=== PATIENT | female | born 1955 | race Caucasian/White ===

== ENCOUNTER → 2024-06-04 | Outpatient (CLI) | payer MEDICARE, OTHER ==
--- NOTE | 2024-06-04 11:14 | CT ---
EXAMINATION TYPE: CT ankle RT wo con DATE OF EXAM: 06/04/2024 COMPARISON: None. HISTORY: RIGHT ANKLE PAIN. Primary osteoarthritis. CT DLP: 277.6 mGycm Automated exposure control for dose reduction was used. CONTRAST: CT right ankle without contrast.. FINDINGS: There is asymmetric severe medial narrowing of the medial ankle mortise with subchondral cystic rivera e involving the adjacent medial aspect of the distal tibia and medial talar dome. There is subchondral cystic change and erosive changes along the distal fibula. There is severe degen erative change at the talocalcaneal joint with marked narrowing and subchondral cystic change. An os trigonum is present. There is small to moderate size inferior calcaneal spur. There is moderate to severe narrowing with s ubchondral cystic change in the midfoot at the level of the Lisfranc joints and the cuboid bone artic ulations. There is moderate narrowing at the talonavicular joint with bony projection from the anteri or superior aspect of the talus also seen. There is partial visualization of surgical change in the f irst metatarsal extending into the proximal phalanx. There is mild to moderate diffuse subcutaneous edema. There is additional 1.8 cm soft tissue lesion a long the plantar surface of the hindfoot axial image 99 of uncertain etiology. IMPRESSION: As above. Advanced degenerative changes are present. Deformity of ankle mortise. Underlyi ng chronic ligamentous injury is suspected. [facility], , 06/04/2024 11:12 AM
== END | disposition home or self-care (01) ==
LOC: RADCTMAIN 09:35
PROVIDERS: ATTEND Podiatrist
DX: M19.071 Primary osteoarthritis, right ankle and foot (principal)

== ENCOUNTER → 2024-07-12 | Outpatient (CLI) | payer MEDICARE, OTHER ==
--- NOTE | 2024-07-12 10:55 | MM ---
Reason for Exam: Screening (asymptomatic). Patient History: Menarche at age 11. Patient has no children. Postmenopausal. MG stereo VAD BX LT - 2 on the Left side. MG stereo VAD BX RT on the Right side. Risk Values: Rowan 5 year model risk: 3.1%. NCI Lifetime model risk: 10.4%. Prior Study Comparison: No prior studies available for comparison. Tissue Density: There are scattered areas of fibroglandular density. Findings: Analyzed By CAD. Grouped microcalcifications outer aspect left breast anterior to middle depth for which further magnification views are recommended. Asymmetric density left MLO view for which further evaluation is also recommended. A microclip in either breast from previous biopsies. Overall Assessment: Incomplete: need additional imaging evaluation, BI-RAD 0 Management: Special View Mammogram of the left breast. Both spot compression and magnification views. [facility] will attempt to contact patient to return for supplemental views and ultrasound if indicated. [facility], , 07/12/2024 10:52 AM. Electronically signed and approved by: Linda Baldwin M.D. Radiologist
== END | disposition home or self-care (01) ==
LOC: RADMAMWWP 09:34
PROVIDERS: ATTEND Family Medicine
DX: Z12.31 Encounter for screening mammogram for malignant neoplasm of breast (principal); R92.323 Mammographic fibroglandular density, bilateral breasts; Z78.0 Asymptomatic menopausal state
CPT/HCPCS: 77063; 77067

== ENCOUNTER → 2024-07-14 | Outpatient (CLI) | payer MEDICARE, OTHER ==
--- NOTE | 2024-07-14 09:14 | MM ---
Reason for Exam: Additional evaluation requested from abnormal screening. Last screening mammogram was performed less than 1 month ago. Patient History: Menarche at age 11. Patient has no children. Postmenopausal. MG stereo VAD BX LT - 2 on the Left side. MG stereo VAD BX RT on the Right side. Risk Values: Rowan 5 year model risk: 3.1%. NCI Lifetime model risk: 10.4%. Prior Study Comparison: 07/12/2024 Bilateral MG 3D screening mammo w/cad, [facility]. Tissue Density: Left: There are scattered areas of fibroglandular density. Findings: Analyzed By CAD. On magnification views, we identify 2 similar groups of microcalcifications, one being the originally questioned group at approximately 3:00 anterior to middle depth and a second area the lower inner quadrant at approximately 8:00. Both of these groups appears similar with round/punctate calcifications and six-month follow-up can be performed. The area of focal asymmetry in the upper outer subareolar region becomes less pronounced on additional views favoring superposition shadow and can also be reassessed at follow-up. Overall Assessment: Probably benign, BI-RAD 3 Management: Diagnostic Mammogram of the left breast in 6 months. For the 2 groups of round/punctate microcalcifications and for the subareolar focal asymmetry. Results were given to the patient verbally at the time of exam. Patient should continue monthly self-breast exams. A clinical breast exam by your physician is recommended on an annual basis. This exam should not preclude additional follow-up of suspicious palpable abnormalities. Note on Rowan scores and lifetime risk: 1. A Rowan score greater than 3% is considered moderate risk. If this is the case, consider specialist referral to assess eligibility for a risk reducing agent. 2. If overall lifetime risk for the development of breast cancer is 20% or higher, the patient may qualify for future screening with alternating mammogram and breast MRI. [facility], , 07/14/2024 9:11 AM. Electronically signed and approved by: Linda Baldwin M.D. Radiologist
== END | disposition home or self-care (01) ==
LOC: RADMAMWWP 08:37
PROVIDERS: ATTEND Family Medicine
DX: R92.8 Other abnormal and inconclusive findings on diagnostic imaging of breast (principal); R92.322 Mammographic fibroglandular density, left breast; Z78.0 Asymptomatic menopausal state
CPT/HCPCS: 77065; G0279; 77061

== ENCOUNTER 2024-07-30 05:36 | Inpatient (IN) | payer MEDICARE, OTHER ==
[2024-07-27 12:44] VITALS: BMI 38.0
[2024-07-30] MEDS: IV FLUID CONTINUATION 1,000 ML IV ONE (06:45)
[2024-07-30] MEDS: LACTATED RINGERS 1,000 ML IV SCH (06:55)
[2024-07-30] MEDS ORDERED: HYDROmorphone 0.5 MG/0.5 ML SYRINGE IVP PRN (07:00)
[2024-07-30] MEDS: ONDANSETRON 4 MG/2 ML VIAL IVP ONE (07:01)
[2024-07-30] MEDS: DEXAMETHASONE SOD PHOSPHATE 4 MG/ML 1 ML VIAL IV ONE (07:01)
[2024-07-30] MEDS: fentaNYL (PF) 50 MCG/ML 2 ML AMP IVP STA (07:04)
[2024-07-30] MEDS: MIDAZOLAM 2 MG/2 ML VIAL IV PRN (07:04)
[2024-07-30 07:10] LABS: Basophils # (A) 0.09 10*3/uL (0.00-0.10); Basophils % (A) 0.8 %; Eosinophils # (A) 0.52 10*3/uL (0.04-0.35); Eosinophils % (A) 4.9 %; HCT 38.2 % (37.2-46.3); HGB 12.3 g/dL (12.0-15.0); Lymphocytes % (A) 11.3 %; MCH 30.1 pg (27.0-32.0); MCHC 32.2 g/dL (32.0-37.0); MCV 93.6 fL (80.0-97.0); Mean Platelet Volume 9.4 fL (9.5-12.2); Monocytes # (A) 1.01 10*3/uL (0.20-1.00); Monocytes % (A) 9.5 %; Neutrophils # (A) 7.77 10*3/uL (1.80-7.70); Neutrophils % (A) 72.8 %; Platelet Count 404 10*3/uL (140-440); RBC 4.08 10*6/uL (4.10-5.20); RDW 15.8 % (11.5-14.5); WBC 10.66 10*3/uL (4.50-10.00)
[2024-07-30] MEDS ORDERED: PHENYLEPHRINE 10 MG/ML VIAL ONE (07:25)
[2024-07-30] MEDS ORDERED: LIDOCAINE 1% INJ 10MG/ML (20 ML MDV) ONE (07:25)
[2024-07-30] MEDS ORDERED: SUCCINYLCHOLINE CHLORIDE 200 MG/10 ML VIAL IV ONE (07:25)
[2024-07-30] MEDS ORDERED: SODIUM CHLORIDE 0.9% (PF) 10 ML VIAL ONE (07:25)
[2024-07-30] MEDS ORDERED: GLYCOPYRROLATE 0.2 MG/ML 2 ML VIAL ONE (07:25)
[2024-07-30] MEDS ORDERED: PROPOFOL 10 MG/ML 20 ML VIAL IV ONE (07:25)
[2024-07-30] MEDS ORDERED: DEXAMETHASONE SOD PHOSPHATE 4 MG/ML 1 ML VIAL ONE (07:25)
[2024-07-30] MEDS ORDERED: fentaNYL (PF) 50 MCG/ML 2 ML AMP ONE (07:25)
[2024-07-30] MEDS ORDERED: ROPIVACAINE 5 MG/ML 30 ML VIAL ONE (07:25)
[2024-07-30] MEDS ORDERED: ePHEDrine 50 MG/ML 1 ML VIAL ONE (07:25)
[2024-07-30] MEDS: ceFAZolin 1,000 MG in SODIUM CHLORIDE 0.9% 1,000 ML IRRIGATION ONE (07:30)
[2024-07-30] MEDS: ceFAZolin 2 GM in DEXTROSE 5% IN WATER 50 ML IVPB PRN (07:30)
[2024-07-30] MEDS: HEPARIN SODIUM 1,000 UN/ML (10ML VL) MISCELLANE ONE (07:50)
--- NOTE | 2024-07-30 07:50 | P.ANPRN ---
Procedure Note - Anesthesia - Nerve Block Performed Right Adductor Canal Single Time Out Performed: Yes Date of Procedure: 07/30/24 Procedure Start Time: :04 Procedure Stop Time: 07:09 Location of Patient: PreOp Indication: Acute Post-Operative Pain, Requested by Surgeon Sedation Type: Sedate with meaningful contact maintained Preparation: Sterile Prep Position: Supine Needle Types: Pajunk Needle Gauge: 21 Ultrasound used to visualize needle placement: Yes Ultrasound used to observe medication spread: Yes Injectate: 0.5% Ropivacaine (see comment for volume) (20 mL +10 mL of normal saline +4 mg dexamethasone) Blood Aspirated: No Pain Paresthesia on Injection Noted: No Resistance on Injection: Normal Image Stored and Saved: Yes Events: Uneventful and Well Tolerated
--- NOTE | 2024-07-30 07:51 | P.ANPRN ---
Procedure Note - Anesthesia - Nerve Block Performed Right Popliteal Single Time Out Performed: Yes Date of Procedure: 07/30/24 Procedure Start Time: 07:10 Procedure Stop Time: 07:15 Location of Patient: PreOp Indication: Acute Post-Operative Pain, Requested by Surgeon Sedation Type: Sedate with meaningful contact maintained Preparation: Sterile Prep Position: Left Lateral Needle Types: Pajunk Needle Gauge: 21 Ultrasound used to visualize needle placement: Yes Ultrasound used to observe medication spread: Yes Injectate: 0.5% Ropivacaine (see comment for volume) (20 mL +10 mL of normal saline +4 mg dexamethasone) Blood Aspirated: No Pain Paresthesia on Injection Noted: No Resistance on Injection: Normal Image Stored and Saved: Yes Events: Uneventful and Well Tolerated
--- NOTE | 2024-07-30 10:27 | XR ---
EXAMINATION TYPE: XR ankle limited RT, FL guidance operating room Intraoperative/procedural fluorosco pic services were provided. CLINICAL INDICATION:Female, 68 years old with history of M19.071 OA RIGHT ANKLE; , [facility] FINDINGS: Postsurgical changes of the right ankle with multiple screws and fixation plate identified. Additiona l fixation hardware of the first digit. There is resection of the distal fibula. Surrounding soft tis reba swelling. No radiographic evidence for complication. Total fluoroscopy time is 30.4 seconds. DAP: 0.3896 Gycm2 Please see the operative/procedural note for further details. [facility], , 07/30/2024 10:24 AM
[2024-07-30] MEDS ORDERED: LORATADINE 10 MG TAB PO PRN (12:59)
[2024-07-30] MEDS ORDERED: diphenhydrAMINE 25 MG CAP PO PRN (12:59)
--- NOTE | 2024-07-30 13:33 | P.CONS ---
History of Present Illness - Reason for Consult Consult date: 07/30/24 - History of Present Illness Patient is a 68-year-old female with past medical history of hypertension, hypothyroidism, obesityRA, BMI 38, active smoker, right ankle osteoarthritis who presented for elective right ankle arthrodesis with subtalar arthrodesis and bone marrow aspiration that was performed on 07/30/2024, patient tolerated procedure well. Sound physicians consulted for medical management. Reviewed patient's vitals, afebrile, blood pressure elevated this morning 166/73, satting well on room air, heart rate in 60s. Blood work this a.m. showed mild leukocytosis 10.6, hemoglobin normal and stable 12.3, platelet count normal. Reviewed external notes, scanned Pertinent positives and negatives as discussed in HPI, a complete review of systems was performed and all other systems are negative. Patient seen and examined at bedside. Vital signs reviewed General: nontoxic, no distress, appears at stated age, obese Derm: warm, dry Head: atraumatic, normocephalic, symmetric Eyes: EOMI, no lid lag, anicteric sclera, pupils equal round reactive to light ENT: Nose and ears atraumatic Neck: No thyromegaly, supple Mouth: no lip lesion, mucus membranes moist Cardiovascular: S1S2 reg, no murmur, no edema Lungs: clear to auscultation bilateral, no rhonchi, no rales, no wheeze, no accessory muscle use Abdominal: soft, nontender to palpation, no guarding, no appreciable organomegaly Ext: no gross muscle atrophy, muscle strength muscle strength 5 out of 5 in all 4 extremities, no contractures, postop dressing clean and dry Neuro: CN II-XII grossly intact Psych: Alert, oriented, appropriate affect Assessment/Plan: Leukocytosis -No signs of active infection, likely reactive, monitor CBC, ordered hypertension hypothyroidism obesity, BMI 38 RA Vitamin B12 deficiency Iron deficiency Depression Allergies -Continue home cholecalciferol 5000 IU daily, vitamin B12 2000 mcg daily, ferrous sulfate 325 p.o. daily, Benadryl 25 p.o. daily, loratadine 10 mg p.o. daily, levothyroxine 100 mcg p.o. daily, lisinopril 10 mg p.o. daily, memantine 5 mg p.o. daily, omeprazole 40 mg p.o. daily, venlafaxine 100 mg 3 times daily -Continue sulfasalazine 1000 twice daily Tobacco use disorder -Nicotine patch ordered per patient's request, discussed importance of smoking cessation right ankle osteoarthritis s/p elective right ankle arthrodesis with subtalar arthrodesis and bone marrow aspiration 07/30/2024 - your postop management, DVT prophylaxis, bowel regimen, pain medications CODE STATUS: Full code DVT prophylaxis: per ortho Past Medical History Past Medical History: GERD/Reflux, Hypertension, Rheumatoid Arthritis (RA), Thyroid Disorder History of Any Multi-Drug Resistant Organisms: None Reported Past Surgical History: Bariatric Surgery, Joint Replacement, Orthopedic Surgery Additional Past Surgical History / Comment(s): LT TKA, LT ELBOW REPAIR X 8 THEN REPLACEMENT, COLONOSCOPY/EGD , ORIF RT WRIST Past Anesthesia/Blood Transfusion Reactions: No Reported Reaction Smoking Status: Current every day smoker - Past Family History Mother Family Medical History: No Reported History Medications and Allergies Home Medications Medication Instructions Recorded Confirmed Type Acetaminophen [Tylenol Extra 1,000 mg PO TID PRN 07/27/24 07/30/24 History Strength] Ascorbic Acid [Vitamin C] 2,000 mg PO BID 07/27/24 07/27/24 History Cholecalciferol [Vitamin D3 (125 125 mcg PO DAILY 07/27/24 07/30/24 History Mcg = 5000 Iu)] Cyanocobalamin (Vitamin B-12) 2,000 mcg PO DAILY 07/27/24 07/30/24 History [Vitamin B-12] Ferrous Sulfate [Feosol] 325 mg PO DAILY 07/27/24 07/30/24 History Ibuprofen [Motrin Ib] 200 mg PO Q8H 07/27/24 07/27/24 History Levothyroxine Sodium 100 mcg PO DAILY 07/27/24 07/30/24 History Loratadine [Claritin] 10 mg PO DAILY PRN 07/27/24 07/30/24 History Magnesium 250 mg PO DAILY 07/27/24 07/30/24 History Memantine [Namenda] 5 mg PO HS 07/27/24 07/30/24 History Multivit with Calcium,Iron,Min 1 each PO DAILY 07/27/24 07/30/24 History [Women's Multivitamin] Omeprazole 40 mg PO DAILY 07/27/24 07/30/24 History Venlafaxine HCl [Effexor] 100 mg PO TID 07/27/24 07/30/24 History diphenhydrAMINE [Benadryl] 25 mg PO DAILY PRN 07/27/24 07/27/24 History lisinopriL [Prinivil] 10 mg PO HS 07/27/24 07/30/24 History sulfaSALAzine [Azulfidine] 1,000 mg PO BID 07/30/24 07/30/24 History Allergies Allergy/AdvReac Type Severity Reaction Status Date / Time Penicillins Allergy Rash/Hives Verified 07/30/24 06:18 Physical Exam Vitals: Vital Signs Temp Pulse Resp BP BP Pulse Ox 07/30/24 07:22 63 16 142/63 98 07/30/24 06:38 97.2 F L 63 16 173/70 166/73 97 Intake and Output 07/29/24 07/30/24 07/30/24 22:59 06:59 14:59 Intake Total 100 651 Output Total 110 Balance 100 541 Intake: IV 100 651 Output: Estimated Blood Loss 110 Results CBC & Chem 7: 07/30/24 06:50 Labs: Abnormal Lab Results - Last 24 Hours (Table) 07/30/24 Range/Units 06:50 WBC 10.66 H (4.50-10.00) 10*3/uL RBC 4.08 L (4.10-5.20) 10*6/uL MPV 9.4 L (9.5-12.2) fL Immature Gran # 0.07 H (0.00-0.04) 10*3/uL Neutrophils # 7.77 H (1.80-7.70) 10*3/uL Monocytes # 1.01 H (0.20-1.00) 10*3/uL Eosinophils # 0.52 H (0.04-0.35) 10*3/uL
--- NOTE | 2024-07-30 14:06 | P.OP ---
Date of Procedure: 07/30/24 Preoperative Diagnosis: 1. Primary osteoarthritis right foot and ankle 2. Acquired deformity right foot and ankle Postoperative Diagnosis: 1. Same 2. Same Procedure(s) Performed: Tibial talocalcaneal arthrodesis right Bone marrow aspiration right tibia Implants: Arthritis lateral tibial talocalcaneal arthrodesis plate with associated screws 15 cc of Arthocell Anesthesia: LASHON Surgeon: Giovanny Gonzales Estimated Blood Loss (ml): 110 Pathology: none sent Condition: stable Disposition: PACU Description of Procedure: Prior to the patient be brought to the op room, anesthesia administered a nerve block on the operative extremity. The patient brought the operating placed on table supine position. Time was taken to confirm correct patient identifiers, correct laterality of surgery, and car procedure. Once all staff in the room in agreement timeout, the patient was induced placed under anesthesia. A thigh tourniquet was placed on the operative hip and a bump beneath the operative hip to internally rotate the leg. The leg was prepped and draped usual manner. Attention directed over the anterior lateral tibia just superior to the ankle joint. A Jamshidi needle was inserted into the medullary canal of the tibia. Approximately 55 mL of bone marrow aspirate was removed and was passed off the field to be spun down to bone marrow aspirate concentrate. The leg was exsanguinated, the knee flexed, and the tourniquet inflated to 250 mmHg. Attention directed to the lateral ankle where a midline incision was made down the fibula and extending over the calcaneus. The incision was deepened down to the subcutaneous tissue careful to identify, void, and retracting neurovascular structures and cauterize any bleeding vessels. Blunt dissection was carried down to the lateral malleolus. The soft tissue surrounding the lateral malleolus including the syndesmosis was incised. The peroneal tendons were protected and the soft tissue incised at the posterior aspect the lateral malleolus. A sagittal saw was used to resect the lateral malleolus. The cut was beveled to avoid any edges on the lateral surface. It was also done several centimeters proximal to the ankle joint from the placement of the laterally based plate. The fibula was dissected from its soft tissue and removed from the surgical field. Soft tissue was released around the ankle and subtalar joints to allow access. A distractor was placed in the calcaneus and the tibia to allow access to both joints. A joint prep bur was then utilized to remove the articular cartilage and subchondral bone of the conjoint surfaces of the tibia and talus as well as the talus and calcaneus. Once adequate joint preparation was achieved, all surfaces were aggressively fenestrated to promote bleeding into the area. At this point the bone marrow aspirate had completed this pr ocess and that was mixed with morselized bone allograft. That was placed between the arthrodesis segments. With the ankle and subtalar joint held in desired alignment, a guidewire was placed on the plantar surface of the calcaneus and advanced across the arthrodesis site and into the tibia to maintain the alignment. Fluoroscopy showed that there was a 90 degree relationship between the ankle and foot. A laterally based tibial talocalcaneal fusion plate was positioned and adjusted under fluoroscopy until properly aligned. Then it was temporarily fixated. The first 2 screws placed were a l ocking and a nonlocking screw in the holes overlying the talus. The nonlocking screw was done first to bring the plate against the bone. The neck screw was the compression slot within the calcaneus. Eccentric drilling was done in the compression slot. Cancellous screw was inserted and used to compress the subtalar joint arthrodesis. 2 additional locking screws were placed in the calcaneus for stability. Then attention directed to the tibial component of the plate where an eccentric hole was drilled through the compression slot. A cortical screw was inserted and advanced until the head and engaged the plate and provided further compression across the arthrodesis sites. The crossing anatomic screw was next. The appropriate drill guide was placed into the slot and the drilling was completed all the way into the talus. The screw was inserted and advanced until it contact the plate and provided further compression. The remaining holes in the plate were filled with locking screws. Final fluoroscopic imaging showed excellent bony contact at the arthrodesis sites as well as corrected alignment of the hindfoot and ankle. All hardware placement was in appropriate position. The wound was then thoroughly irrigated with antibiotic saline. Deep closure was done with 2-0 Vicryl. The subcutaneous closed 04 0 Monocryl. Skin closure with ratna. Arthrex jumpstart and a bulky dry dressing applied to the ankle. The tourniquet released capillary refill returned all digits of the foot. The patient was placed in a well-padded, well molded plaster posterior mold/sugar-tong splint. The foot and ankle were held in neutral position till the splint was dried. Anesthesia was reversed and the patient was taken recovery with vital signs stable.
[2024-07-30] MEDS ORDERED: ONDANSETRON 4 MG/2 ML VIAL IVP PRN (14:44)
[2024-07-30] MEDS: ENOXAPARIN 40 MG/0.4 ML SYRINGE SQ SCH (15:02)
[2024-07-30] MEDS: NICOTINE 21MG/24HR PATCH TRANSDERM SCH (15:03)
[2024-07-30] MEDS: HYDROmorphone 2 MG/ML 1 ML SYRINGE IVP PRN (15:11)
[2024-07-30] MEDS: VENLAFAXINE HCL 50 MG TAB PO SCH (19:04)
[2024-07-30] MEDS: MEMANTINE 5 MG TAB PO SCH (21:33)
[2024-07-30] MEDS: HYDROcodone/APAP 5-325MG 1 EACH TAB PO PRN (21:33)
[2024-07-30] MEDS: lisinopriL 10 MG TAB PO SCH (21:33)
[2024-07-30] MEDS: sulfaSALAzine 500 MG TAB PO SCH (21:35)
[2024-07-31] MEDS: PANTOPRAZOLE 40 MG TABLET PO SCH (06:26)
[2024-07-31] MEDS: LEVOTHYROXINE 100 MCG TAB PO SCH (06:27)
--- NOTE | 2024-07-31 09:05 | P.CONS ---
History of Present Illness - Chief Complaint Ongoing osteoarthritis of the right foot and ankle - History of Present Illness This 68-year-old female fairly new to our practice who we have seen for her preop surgical clearance, inadvertently due to downtime issue, sound was consulted for her care, I have discussed the case with the nurse and floor coordinator and patient and I am seeing the patient now. She indicates she has been having right ankle pain for approximately 5 years. She is recently from [facility] and came to the area to Stay with her friend for some time. She is postop day 1, denies any chest pain pressure shortness of breath nausea or vomiting. She is to have minimal weightbearing. She has a cast to her right foot. She is going to go to [facility] on Friday. Vital signs are stable. Laboratory studies yesterday showed a slight bump in white count but normal hemoglobin. Review of Systems All systems: negative Past Medical History Past Medical History: GERD/Reflux, Hypertension, Rheumatoid Arthritis (RA), Thyroid Disorder History of Any Multi-Drug Resistant Organisms: None Reported Past Surgical History: Bariatric Surgery, Joint Replacement, Orthopedic Surgery Additional Past Surgical History / Comment(s): LT TKA, LT ELBOW REPAIR X 8 THEN REPLACEMENT, COLONOSCOPY/EGD , ORIF RT WRIST Past Anesthesia/Blood Transfusion Reactions: No Reported Reaction Smoking Status: Current every day smoker - Past Family History Mother Family Medical History: No Reported History Medications and Allergies Home Medications Medication Instructions Recorded Confirmed Type Acetaminophen [Tylenol Extra 1,000 mg PO TID PRN 07/27/24 07/30/24 History Strength] Ascorbic Acid [Vitamin C] 2,000 mg PO BID 07/27/24 07/27/24 History Cholecalciferol [Vitamin D3 (125 125 mcg PO DAILY 07/27/24 07/30/24 History Mcg = 5000 Iu)] Cyanocobalamin (Vitamin B-12) 2,000 mcg PO DAILY 07/27/24 07/30/24 History [Vitamin B-12] Ferrous Sulfate [Feosol] 325 mg PO DAILY 07/27/24 07/30/24 History Ibuprofen [Motrin Ib] 200 mg PO Q8H 07/27/24 07/27/24 History Levothyroxine Sodium 100 mcg PO DAILY 07/27/24 07/30/24 History Loratadine [Claritin] 10 mg PO DAILY PRN 07/27/24 07/30/24 History Magnesium 250 mg PO DAILY 07/27/24 07/30/24 History Memantine [Namenda] 5 mg PO HS 07/27/24 07/30/24 History Multivit with Calcium,Iron,Min 1 each PO DAILY 07/27/24 07/30/24 History [Women's Multivitamin] Omeprazole 40 mg PO DAILY 07/27/24 07/30/24 History Venlafaxine HCl [Effexor] 100 mg PO TID 07/27/24 07/30/24 History diphenhydrAMINE [Benadryl] 25 mg PO DAILY PRN 07/27/24 07/27/24 History lisinopriL [Prinivil] 10 mg PO HS 07/27/24 07/30/24 History sulfaSALAzine [Azulfidine] 1,000 mg PO BID 07/30/24 07/30/24 History Allergies Allergy/AdvReac Type Severity Reaction Status Date / Time Penicillins Allergy Rash/Hives Verified 07/30/24 06:18 Physical Exam Vitals: Vital Signs Temp Pulse Resp BP Pulse Ox 07/31/24 08:05 98.2 F 75 16 127/74 97 07/31/24 02:15 17 94 L 07/31/24 02:00 98 F 70 17 146/80 88 L 07/30/24 20:00 98.7 F 75 17 138/73 94 L 07/30/24 17:32 98.3 F 74 17 145/76 94 L 07/30/24 14:00 98.3 F 76 120/76 94 L 07/30/24 12:35 69 112/59 93 L 07/30/24 12:15 70 117/68 94 L 07/30/24 12:00 70 125/71 96 07/30/24 11:45 70 127/72 93 L 07/30/24 11:30 69 130/77 92 L 07/30/24 11:15 67 125/75 95 07/30/24 11:05 68 127/74 92 L 07/30/24 10:45 98.3 F 69 132/72 94 L Intake and Output 07/30/24 07/31/24 07/31/24 22:59 06:59 14:59 Intake Total 580 Balance 580 Intake: Oral 580 Other: # Voids 1 1 GENERAL: Elderly female in no acute distress resting comfortably lying in her bed HEAD: Atraumatic, normocephalic. EYES: Pupils equal round and reactive to light, extraocular movements intact, sclera anicteric, conjunctiva are normal. ENT:nares patent, oropharynx clear without exudates. Moist mucous membranes. NECK: Normal range of motion, supple without lymphadenopathy or JVD, no t hyromegaly LUNGS: Breath sounds clear to auscultation bilaterally and equal. No wheezes rales or rhonchi. HEART: Regular rate and rhythm without murmurs, rubs or gallops.S1S2 Normal ABDOMEN: Soft, nontender, normoactive bowel sounds. No guarding, no rebound. No masses appreciated. EXTREMITIES: Right foot and ankle are casted. Toes are warm NEUROLOGICAL: Cranial nerves II through XII grossly intact. Normal speech, normal gait. PSYCH: Normal mood, normal affect. SKIN: Warm, Dry, normal turgor, no rashes or lesions noted. Results CBC & Chem 7: 07/30/24 06:50 Assessment and Plan (1) Status post right ankle joint replacement Current Visit: Yes Status: Acute Code(s): Z96.661 - PRESENCE OF RIGHT ARTIFICIAL ANKLE JOINT SNOMED Code(s): 3812591878939324 (2) Osteoarthritis of right ankle Current Visit: Yes Status: Acute Code(s): M19.071 - PRIMARY OSTEOARTHRITIS, RIGHT ANKLE AND FOOT SNOMED Code(s): 65057452523880451 (3) Benign essential HTN Current Visit: Yes Status: Acute Code(s): I10 - ESSENTIAL (PRIMARY) HYPERTENSION SNOMED Code(s): 3458019 (4) Acquired hypothyroidism Current Visit: Yes Status: Acute Code(s): E03.9 - HYPOTHYROIDISM, UNSPECIFIED SNOMED Code(s): 534352854 (5) Smoker Current Visit: Yes Status: Acute Code(s): F17.200 - NICOTINE DEPENDENCE, UNSPECIFIED, UNCOMPLICATED SNOMED Code(s): 09637462 (6) GERD without esophagitis Current Visit: Yes Status: Acute Code(s): K21.9 - GASTRO-ESOPHAGEAL REFLUX DISEASE WITHOUT ESOPHAGITIS SNOMED Code(s): 848284800 (7) Depression Current Visit: Yes Status: Acute Code(s): F32.A - DEPRESSION, UNSPECIFIED SNOMED Code(s): 74691134 Plan: Patient appears medically stable this time, she will undergo physical therapy, we will plan on following her at [facility] when she goes, we will reevaluate her here. Will check BMP in AM.
[2024-07-31 09:48] LABS: Basophils # (A) 0.03 X 10*3/uL (0.00-0.10); Basophils % (A) 0.2 %; Eosinophils # (A) 0.01 X 10*3/uL (0.04-0.35); Eosinophils % (A) 0.1 %; HCT 34.9 % (37.2-46.3); HGB 10.7 g/dL (12.0-15.0); Lymphocytes # (A) 1.32 X 10*3/uL (0.90-5.00); Lymphocytes % (A) 10.2 %; MCH 29.8 pg (27.0-32.0); MCHC 30.7 g/dL (32.0-37.0); MCV 97.2 FL (80.0-97.0); Monocytes # (A) 1.23 X 10*3/uL (0.20-1.00); Monocytes % (A) 9.5 %; NRBC Per 100 WBC 0 X 10*3/uL (0.00-0.01); Neutrophils # (A) 10.27 X 10*3/uL (1.80-7.70); Neutrophils % (A) 79.3 %; Platelet Count 388 X 10*3/uL (140-440); RBC 3.59 X 10*6/uL (4.10-5.20); RDW 16.1 % (11.5-14.5); WBC 12.95 X 10*3/uL (4.50-10.00)
--- NOTE | 2024-07-31 10:15 | P.PN ---
Subjective Progress Note Date: 07/31/24 Principal diagnosis: 1. Primary osteoarthritis right foot and ankle 2. Acquired deformity right foot and ankle Patient underwent a tibial talocalcaneal arthrodesis on the right lower extremity on July 30, 2024. Patient admitted after surgery for rehab placement upon discharge Patient visited bedside is doing well. Nerve block still active and she has very little pain. Denies nausea, vomiting, fever, chills, calf pain, shortness of breath. Objective - Vital Signs Vital signs: Vital Signs Temp 98.2 F 07/31/24 08:05 Pulse 75 07/31/24 08:05 Resp 16 07/31/24 08:05 BP 127/74 07/31/24 08:05 Pulse Ox 97 07/31/24 08:05 FiO2 Intake & Output 07/30/24 07/31/24 07/31/24 18:59 06:59 18:59 Intake Total 901 580 Output Total 110 Balance 791 580 Weight 85.275 kg Intake: IV 651 Oral 250 580 Output: Estimated Blood Loss 110 Other: # Voids 1 1 - Exam Patient was awake, alert, and oriented x 3. No distress. Patient is resting comfortably in bed. Plaster splint on the right lower extremity. Splint is clean and dry. No strikethrough. Digits are pink and well-perfused. Little to no feeling of the digits secondary to the nerve block that still active. - Labs CBC & Chem 7: 07/31/24 05:29 Labs: Abnormal Lab Results - Last 24 Hours (Table) 07/31/24 Range/Units 05:29 WBC 12.95 H (4.50-10.00) X 10*3/uL RBC 3.59 L (4.10-5.20) X 10*6/uL Hgb 10.7 L (12.0-15.0) g/dL Hct 34.9 L (37.2-46.3) % MCV 97.2 H (80.0-97.0) FL MCHC 30.7 L (32.0-37.0) g/dL RDW 16.1 H (11.5-14.5) % Immature Gran # 0.09 H (0.00-0.04) X 10*3/uL Neutrophils # 10.27 H (1.80-7.70) X 10*3/uL Monocytes # 1.23 H (0.20-1.00) X 10*3/uL Eosinophils # 0.01 L (0.04-0.35) X 10*3/uL Assessment and Plan (1) Primary osteoarthritis, right ankle and foot Current Visit: Yes Status: Acute Code(s): M19.071 - PRIMARY OSTEOARTHRITIS, RIGHT ANKLE AND FOOT SNOMED Code(s): 516616672523729 Plan: Patient is doing well at this point. I explained to her that eventually the nerve block will wear off and she will require additional pain medications. Patient has no additional concerns at this time. Awaiting rehab placement when she has completed the necessary stay to qualify for rehab placement. Time with Patient: Less than 30
[2024-07-31] MEDS: MAGNESIUM OXIDE 400 MG TAB PO SCH (10:43)
[2024-07-31] MEDS: CHOLECALCIFEROL 125 MCG (5000 IU) TABLET PO SCH (10:43)
[2024-07-31] MEDS: FERROUS SULFATE 325 MG TAB PO SCH (10:43)
[2024-07-31] MEDS: CYANOCOBALAMIN 500 MCG TAB PO SCH (10:43)
[2024-08-01 11:05] LABS: BUN/Creat Ratio 25.75 Ratio (12.00-20.00); Blood Urea Nitrogen 10.3 mg/dL (9.0-27.0); Calcium 8.8 mg/dL (8.7-10.3); Carbon Dioxide 27.2 mmol/L (21.6-31.8); Chloride 101 mmol/L (96-109); Glucose 76 mg/dL (70-110); Potassium 4.2 mmol/L (3.5-5.5); Sodium 140 mmol/L (135-145)
--- NOTE | 2024-08-01 12:07 | P.PN ---
Subjective The patient was seen evaluated once again. She is status post talocalcaneal arthrodesis on the right lower extremity. She is postop day 2. She has no significant complaints today. Staff found her blood pressure to be slightly elevated. Vital signs been stable. Pulse oximetry is stable on room air. Laboratory studies show essentially normal serum chemistries today. She was found to have a slight anemia yesterday with a leukocytosis. Patient's morning denies any nausea vomiting, chest pain, pressures, shortness of breath, other issues. She does have pain in her right lower extremity. Indicates that is better with elevation and her pain medication. She has hydromorphone and [place] ordered for pain. She is on Lovenox for DVT prophyl axis. Objective - Vital Signs Vital signs: Vital Signs Temp 98.2 F 08/01/24 07:19 Pulse 62 08/01/24 07:19 Resp 19 08/01/24 07:19 BP 142/69 08/01/24 07:19 Pulse Ox 95 08/01/24 07:19 FiO2 Intake & Output 07/31/24 08/01/24 08/01/24 18:59 06:59 18:59 Intake Total 480 Balance 480 Intake: Oral 480 Other: # Voids 3 4 - Exam General: The patient is awake and alert, in no distress, and does not appear acutely ill. She is an elderly female in no acute distress. Neck: The neck is supple, there is no thyromegaly, lymphadenopathy, tenderness or JVD. Cardiovascular: S1S2 is normal, There is a regular rate and rhythm. No murmur, rub or gallop is appreciated. Respiratory: Lungs are clear to auscultation bilaterally, respirations are non-labored, breath sounds are equal. Gastrointestinal: Soft, non-distended, non-tender abdomen without masses or organomegaly noted. There is no rebound or guarding present. Bowel sounds are unremarkable. Musculoskeletal: Right lower extremity has a splint and David wrap in place. Toes are warm to the touch. Left foot ankle essentially normal. There is trace pedal edema. Neurological: CN II-XII intact, there are no obvious motor or sensory deficits. Coordination appears grossly intact. Speech is normal. Skin: Skin is warm and dry and no rashes or lesions are noted. - Labs CBC & Chem 7: 07/31/24 05:29 08/01/24 04:41 Labs: Abnormal Lab Results - Last 24 Hours (Table) 08/01/24 Range/Units 04:41 Creatinine 0.4 L (0.6-1.5) mg/dL BUN/Creatinine Ratio 25.75 H (12.00-20.00) Ratio Assessment and Plan (1) Status post right ankle joint replacement Current Visit: Yes Status: Acute Code(s): Z96.661 - PRESENCE OF RIGHT ARTIFICIAL ANKLE JOINT SNOMED Code(s): 7958782637311933 (2) Osteoarthritis of right ankle Current Visit: Yes Status: Acute Code(s): M19.071 - PRIMARY OSTEOARTHRITIS, RIGHT ANKLE AND FOOT SNOMED Code(s): 51416293919025508 (3) Benign essential HTN Current Visit: Yes Status: Acute Code(s): I10 - ESSENTIAL (PRIMARY) HYPERTENSION SNOMED Code(s): 7525975 (4) Acquired hypothyroidism Current Visit: Yes Status: Acute Code(s): E03.9 - HYPOTHYROIDISM, UNSPECIFIED SNOMED Code(s): 363911043 (5) Smoker Current Visit: Yes Status: Acute Code(s): F17.200 - NICOTINE DEPENDENCE, UNSPECIFIED, UNCOMPLICATED SNOMED Code(s): 85922414 (6) GERD without esophagitis Current Visit: Yes Status: Acute Code(s): K21.9 - GASTRO-ESOPHAGEAL REFLUX DISEASE WITHOUT ESOPHAGITIS SNOMED Code(s): 875515938 (7) Depression Current Visit: Yes Status: Acute Code(s): F32.A - DEPRESSION, UNSPECIFIED SNOMED Code(s): 05209533 (8) Anemia Current Visit: Yes Status: Acute Code(s): D64.9 - ANEMIA, UNSPECIFIED SNOMED Code(s): 454051479 (9) Rheumatoid arthritis Current Visit: Yes Status: Acute Code(s): M06.9 - RHEUMATOID ARTHRITIS, UNSPECIFIED SNOMED Code(s): 20763554 Plan: She will continue on her current medications and treatments. For elevated blood pressure we will increase her lisinopril to 20 mg and have staff continue to monitor. Continue her other home medications, repeat laboratory studies to reevaluate her leukocytosis, anemia. Should be reevaluated by family medicine in the next 24 hours. ECF expected in the next 48 hours
[2024-08-01] MEDS: LISINOPRIL-HCTZ 20-12.5 MG 1 EACH TAB PO SCH (13:44)
[2024-08-02 08:35] LABS: HCT 42.1 % (37.2-46.3); HGB 13.1 g/dL (12.0-15.0); MCH 30.3 pg (27.0-32.0); MCHC 31.1 g/dL (32.0-37.0); MCV 97.2 FL (80.0-97.0); Mean Platelet Volume 9.9 FL (9.5-12.2); NRBC Per 100 WBC 0 X 10*3/uL (0.00-0.01); Platelet Count 467 X 10*3/uL (140-440); RBC 4.33 X 10*6/uL (4.10-5.20); RDW 15.9 % (11.5-14.5)
[2024-08-02 08:36] LABS: Basophils # (A) 0.09 X 10*3/uL (0.00-0.10); Basophils % (A) 0.9 %; Eosinophils # (A) 0.28 X 10*3/uL (0.04-0.35); Eosinophils % (A) 2.7 %; Lymphocytes # (A) 2.95 X 10*3/uL (0.90-5.00); Lymphocytes % (A) 28.4 %; Monocytes # (A) 0.88 X 10*3/uL (0.20-1.00); Monocytes % (A) 8.5 %; Neutrophils # (A) 6.14 X 10*3/uL (1.80-7.70); Neutrophils % (A) 58.9 %
[2024-08-02 08:45] LABS: Blood Urea Nitrogen 11.9 mg/dL (9.0-27.0); Carbon Dioxide 25.6 mmol/L (21.6-31.8); Chloride 99 mmol/L (96-109); Glucose 80 mg/dL (70-110); Potassium 4.6 mmol/L (3.5-5.5); Sodium 137 mmol/L (135-145)
[2024-08-02] MEDS: SENNOSIDES-DOCUSATE SODIUM 1 EACH TAB PO SCH (10:01)
--- NOTE | 2024-08-02 11:31 | P.PN ---
Subjective Progress Note Date: 08/02/24 - History of Present Illness 07/31/24 This 68-year-old female fairly new to our practice who we have seen for her preop surgical clearance, inadvertently due to downtime issue, sound was consulted for her care, I have discussed the case with the nurse and floor coordinator and patient and I am seeing the patient now. She indicates she has been having right ankle pain for approximately 5 years. She is recently from [place] and came to the area to Stay with her friend for some time. She is postop day 1, denies any chest pain pressure shortness of breath nausea or vomiting. She is to have minimal weightbearing. She has a cast to her right foot. She is going to go to [facility] on Friday. Vital signs are stable. Laboratory studies yesterday showed a slight bump in white count but normal hemoglobin. 08/01/2024 The patient was seen evaluated once again. She is status post talocalcaneal arthrodesis on the right lower extremity. She is postop day 2. She has no significant complaints today. Staff found her blood pressure to be slightly elevated. Vital signs been stable. Pulse oximetry is stable on room air. Laboratory studies show essentially normal serum chemistries today. She was found to have a slight anemia yesterday with a leukocytosis. Patient's morning denies any nausea vomiting, chest pain, pressures, shortness of breath, other issues. She does have pain in her right lower extremity. Indicates that is better with elevation and her pain medication. She has hydromorphone and [place] ordered for pain. She is on Lovenox for DVT prophylax is. 08/02/2024 sitting up in chair, pain controlled. Reports constipation, no bowel movement since or Friday. yesterday Zestoretic dose increased, blood pressure better controlled today, currently maintaining blood pressure 133/70. Denies chest pain, palpitations or shortness of breath. Maintaining O2 sats in the mid 90s on room air. Tmax 99, WBC nearly normalized, 10.4. Hemoglobin 13.1, platelets 467. Creatinine 0.5 Objective - Vital Signs Vital signs: Vital Signs Temp 98.1 F 08/02/24 07:08 Pulse 68 08/02/24 07:08 Resp 18 08/02/24 07:08 BP 133/70 08/02/24 07:08 Pulse Ox 95 08/02/24 07:08 FiO2 Intake & Output 08/01/24 08/02/24 08/02/24 18:59 06:59 18:59 Intake Total 640 480 Balance 640 480 Intake: Oral 640 480 Other: # Voids 3 1 2 # Bowel Movements 1 - Exam - Exam General: A& O X 3, sitting up in chair, no acute distress HEENT : Normocephalic ,atraumatic pupils equal , conjunctiva normal ,neck seymour pple, no JVD.MMM. Cardiovascular: S1S2 is normal, regular rate and rhythm. No murmur, rub or gallop is appreciated. Respiratory: Unlabored, equal air entry, clear to auscultation. Gastrointestinal: Soft, non-distended, non-tender abdomen without masses/organomegaly noted. no rebound or guarding present.+BS Musculoskeletal: Right lower extremity splint and David wrap present. Toes are warm to the touch, wiggles digits easily. Left foot ankle essentially normal. There is trace pedal edema. Neurological: CN II-XII intact, there are no obvious motor or sensory deficits. Coordination appears grossly intact. Skin: Skin is warm and dry and no rashes or lesions are noted. - Labs CBC & Chem 7: 08/02/24 03:27 08/02/24 03:27 Labs: Abnormal Lab Results - Last 24 Hours (Table) 08/02/24 08/02/24 Range/Units 03:27 03:27 WBC 10.40 H (4.50-10.00) X 10*3/uL MCV 97.2 H (80.0-97.0) FL MCHC 31.1 L (32.0-37.0) g/dL RDW 15.9 H (11.5-14.5) % Plt Count 467 H (140-440) X 10*3/uL Immature Gran # 0.06 H (0.00-0.04) X 10*3/uL Anion Gap 12.40 H (4.00-12.00) mmol/L Creatinine 0.5 L (0.6-1.5) mg/dL BUN/Creatinine Ratio 23.80 H (12.00-20.00) Ratio Assessment and Plan Assessment: Assessment and Plan (1) Status post right ankle joint replacement Current Visit: Yes Status: Acute Code(s): Z96.661 - PRESENCE OF RIGHT ARTIFICIAL ANKLE JOINT SNOMED Code(s): 2891235617468901 (2) Osteoarthritis of right ankle Current Visit: Yes Status: Acute Code(s): M19.071 - PRIMARY OSTEOARTHRITIS, RIGHT ANKLE AND FOOT SNOMED Code(s): 10424519303325247 (3) Benign essential HTN Current Visit: Yes Status: Acute Code(s): I10 - ESSENTIAL (PRIMARY) HYPERTENSION SNOMED Code(s): 4519347 (4) Acquired hypothyroidism Current Visit: Yes Status: Acute Code(s): E03.9 - HYPOTHYROIDISM, U NSPECIFIED SNOMED Code(s): 439732022 (5) Smoker Current Visit: Yes Status: Acute Code(s): F17.200 - NICOTINE DEPENDENCE, UNSPECIFIED, UNCOMPLICATED SNOMED Code(s): 63237908 (6) GERD without esophagitis Current Visit: Yes Status: Acute Code(s): K21.9 - GASTRO-ESOPHAGEAL REFLUX DISEASE WITHOUT ESOPHAGITIS SNOMED Code(s): 576312313 (7) Depression Current Visit: Yes Status: Acute Code(s): F32.A - DEPRESSION, UNSPECIFIED SNOMED Code(s): 61546202 (8) Anemia, resolved Current Visit: Yes Status: Acute Code(s): D64.9 - ANEMIA, UNSPECIFIED SNOMED Code(s): 112753185 (9) Rheumatoid arthritis Current Visit: Yes Status: Acute Code(s): M06.9 - RHEUMATOID ARTHRITIS, UNSPECIFIED SNOMED Code(s): 12665728 Plan: Continue on current medication regimen ,monitoring and symptomatic treatment. Pain management , DVT prophylaxis as per orthopedic surgery. Senokot ordered twice daily, if no results will order MiraLAX .PT/OT. Hypertension better controlled, on increased dose of her Zestoretic. Continue close monitoring of blood pressure. Discharge planning for [facility] rehab. in progress as per orthopedic surgery, OBRA completed. Dr. De La Paz will follow patient Jayy. Patient will continue following with [facility] 1 week after DC from subacute rehab. The impression and plan of care has been dictated as directed. : I performed a history and examination of this patient, discussed the same with the dictator. I agree with the dictator's note ,documented as a scribe. Any additional findings or plans will be noted.
[2024-08-03 07:19] VITALS: RESP 18
--- NOTE | 2024-08-03 11:58 | P.PN ---
Subjective Progress Note Date: 08/03/24 - History of Present Illness 07/31/24 This 68-year-old female fairly new to our practice who we have seen for her preop surgical clearance, inadvertently due to downtime issue, sound was consulted for her care, I have discussed the case with the nurse and floor coordinator and patient and I am seeing the patient now. She indicates she has been having right ankle pain for approximately 5 years. She is recently from [place] and came to the area to Stay with her friend for some time. She is postop day 1, denies any chest pain pressure shortness of breath nausea or vomiting. She is to have minimal weightbearing. She has a cast to her right foot. She is going to go to [facility] on Friday. Vital signs are stable. Laboratory studies yesterday showed a slight bump in white count but normal hemoglobin. 08/01/2024 The patient was seen evaluated once again. She is status post talocalcaneal arthrodesis on the right lower extremity. She is postop day 2. She has no significant complaints today. Staff found her blood pressure to be slightly elevated. Vital signs been stable. Pulse oximetry is stable on room air. Laboratory studies show essentially normal serum chemistries today. She was found to have a slight anemia yesterday with a leukocytosis. Patient's morning denies any nausea vomiting, chest pain, pressures, shortness of breath, other issues. She does have pain in her right lower extremity. Indicates that is better with elevation and her pain medication. She has hydromorphone and [place] ordered for pain. She is on Lovenox for DVT prophylax is. 08/02/2024 sitting up in chair, pain controlled. Reports constipation, no bowel movement since or Friday. yesterday Zestoretic dose increased, blood pressure better controlled today, currently maintaining blood pressure 133/70. Denies chest pain, palpitations or shortness of breath. Maintaining O2 sats in the mid 90s on room air. Tmax 99, WBC nearly normalized, 10.4. Hemoglobin 13.1, platelets 467. Creatinine 0.5 08/03/2024 significant clinical improvement. Pain controlled on current med regimen. Continues on Senokot S-, positive bowel movement .vital signs stable .denies chest pain, palpitations or shortness of breath. Maintaining O2 sats in the mid 90s on room air. Patient dressed, sitting in chair, eager for discharge to [facility] subacute rehab. Objective - Vital Signs Vital signs: Vital Signs Temp 98.7 F 08/03/24 06:46 Pulse 71 08/03/24 06:46 Resp 18 08/03/24 06:46 BP 126/77 08/03/24 06:46 Pulse Ox 95 08/03/24 06:46 FiO2 Intake & Output 08/02/24 08/03/24 08/03/24 18:59 06:59 18:59 Intake Total 640 Output Total 1275 Balance -635 Intake: Oral 640 Output: Urine 1275 Other: Voiding Method Bedside Commode # Voids 1 2 # Bowel Movements 1 - Exam - Exam General: A& O X 3, dressed in civilian clothes, Sitting up in chair, no acute distress HEENT : Normocephalic ,atraumatic pupils equal , conjunctiva normal ,neck supple, no JVD.MMM. Cardiovascular: S1S2 is normal, regular rate and rhythm. No murmur, rub or gallop is appreciated. Respiratory: Unlabored, equal air entry, clear to auscultation, bilateral bases diminished. Gastrointestinal: Soft, non-distended, non-tender abdomen , positive bowel sounds. Musculoskeletal: Right lower extremity splint and David wrap present. Toes are warm to the touch, wiggles digits easily. Left foot ankle essentially normal. Neurological: CN II-XII intact, there are no obvious motor or sensory deficits. Skin: Skin is warm and dry and no rashes noted. - Labs CBC & Chem 7: 08/02/24 03:27 08/02/24 03:27 Assessment and Plan Assessment: Assessment and Plan (1) Status post right ankle joint replacement Current Visit: Yes Status: Acute Code(s): Z96.661 - PRESENCE OF RIGHT ARTIFICIAL ANKLE JOINT SNOMED Code(s): 5701046342753171 (2) Osteoarthritis of right ankle Current Visit: Yes Status: Acute Code(s): M19.071 - PRIMARY OSTEOARTHRITIS, RIGHT ANKLE AND FOOT SNOMED Code(s): 44025603958197528 (3) Benign essential HTN Current Visit: Yes Status: Acute Code(s): I10 - ESSENTIAL (PRIMARY) H YPERTENSION SNOMED Code(s): 9217649 (4) Acquired hypothyroidism Current Visit: Yes Status: Acute Code(s): E03.9 - HYPOTHYROIDISM, UNSPECIFIED SNOMED Code(s): 893801773 (5) Smoker Current Visit: Yes Status: Acute Code(s): F17.200 - NICOTINE DEPENDENCE, UNSPECIFIED, UNCOMPLICATED SNOMED Code(s): 37318021 (6) GERD without esophagitis Current Visit: Yes Status: Acute Code(s): K21.9 - GASTRO-ESOPHAGEAL REFLUX DISEASE WITHOUT ESOPHAGITIS SNOMED Code(s): 961238108 (7) Depression Current Visit: Yes Status: Acute Code(s): F32.A - DEPRESSION, UNSPECIFIED SNOMED Code(s): 19842454 (8) Anemia, resolved Current Visit: Yes Status: Acute Code(s): D64.9 - ANEMIA, UNSPECIFIED SNOMED Code(s): 269469769 (9) Rheumatoid arthritis Current Visit: Yes Status: Acute Code(s): M06.9 - RHEUMATOID ARTHRITIS, UNSPECIFIED SNOMED Code(s): 87199963 (10) morbid obesity, BMI 38 (11) postoperative atelectasis, expected outcome Plan: Continue on current medication regimen ,monitoring and symptomatic treatment. Pain management , DVT prophylaxis, discharge planning for [facility] subacute rehab. in progress as per orthopedic surgery. Medically cleared for discharge to subacute rehab. Dr. De La Paz will follow patient while at [facility]. Patient will continue following with KIM King 1 week after DC from subacute rehab. The impression and plan of care has been dictated as directed. : I performed a history and examination of this patient, discussed the same with the dictator. I agree with the dictator's note ,documented as a scribe. Any additional findings or plans will be noted.
--- NOTE | 2024-08-03 12:06 | P.DS ---
Providers Date of admission: 07/31/24 09:55 Attending physician: Giovanny Gonzales DPM Consults: 07/30/24 11:53 Consult Physician Routine Consulting Provider: Ryan Butts Jr Consult Reason/Comments: medical management Do you want consulting provider notified?: Yes Primary care physician: Ryan Butts - Discharge Diagnosis(es) (1) Primary osteoarthritis, right ankle and foot Current Visit: No Status: Acute Hospital Course: Patient underwent tibiotalocalcaneal arthrodesis on the right ankle on 07/30/24. Patient was admissted for placement into a rehab facility post-operatively Her PCP group was consulted for medical management during admission Nerve block was in place through the next post-op day She had more pain once the block wore off, however it has been managed with medication Her blood pressure was elevated during admission and may be associated when her pain increased. Medications adjustments were made that bought the pressure to WNL Patient's overall hospital course was uneventful Assessment: S/P tibiotalocalcaneal arthrodesis right ankle Health Concerns: Elevated blood pressure that was managed with medication adjustments Will want to monitor through her rehab stay Procedures: Tibiotaolcalcaneal arthrodesis right ankle on 07/30/24 Patient Condition at Discharge: Good Plan - Discharge Summary Discharge Rx Participant: Yes New Discharge Prescriptions: New RX: Nicotine 21Mg/24Hr Patch [Habitrol] 1 patch TRANSDERM DAILY patch RX: Lisinopril-Hctz 20-12.5 mg [Zestoretic 20-12.5] 1 each PO DAILY tab RX: Sennosides-Docusate Sodium [Senokot-S] 2 each PO BID tab HYDROcodone/APAP 5-325MG [Bend 5-325] 1 tab PO Q6HR PRN #28 tab PRN Reason: Pain Continue RX: Loratadine [Claritin] 10 mg PO DAILY PRN PRN Reason: ALLERGIES RX: Levothyroxine Sodium 100 mcg PO DAILY RX: Ascorbic Acid [Vitamin C] 2,000 mg PO BID RX: Ferrous Sulfate [Iron (65 MG Elemental)] 325 mg PO DAILY RX: Cholecalciferol [Vitamin D3 (125 Mcg = 5000 Iu)] 125 mcg PO DAILY RX: sulfaSALAzine [Azulfidine] 1,000 mg PO BID RX: diphenhydrAMINE [Benadryl] 25 mg PO DAILY PRN PRN Reason: Allergy Symptoms RX: Acetaminophen [Tylenol Extra Strength] 1,000 mg PO TID PRN PRN Reason: Pain RX: Omeprazole 40 mg PO DAILY RX: Multivit with Calcium,Iron,Min [Women's Multivitamin] 1 each PO DAILY RX: Memantine [Namenda] 5 mg PO HS RX: Magnesium 250 mg PO DAILY RX: Cyanocobalamin (Vitamin B-12) [Vitamin B-12] 2,000 mcg PO DAILY RX: Venlafaxine HCl [Effexor] 100 mg PO TID Discontinued Ibuprofen [Motrin Ib] 200 mg PO Q8H RX: lisinopriL [Prinivil] 10 mg PO HS Discharge Medication List RX: Acetaminophen [Tylenol Extra Strength] 1,000 mg PO TID PRN 07/27/24 [History] RX: Ascorbic Acid [Vitamin C] 2,000 mg PO BID 07/27/24 [History] RX: Cholecalciferol [Vitamin D3 (125 Mcg = 5000 Iu)] 125 mcg PO DAILY 07/27/24 [History] RX: Cyanocobalamin (Vitamin B-12) [Vitamin B-12] 2,000 mcg PO DAILY 07/27/24 [History] RX: Ferrous Sulfate [Iron (65 MG Elemental)] 325 mg PO DAILY 07/27/24 [History] RX: Levothyroxine Sodium 100 mcg PO DAILY 07/27/24 [History] RX: Loratadine [Claritin] 10 mg PO DAILY PRN 07/27/24 [History] RX: Magnesium 250 mg PO DAILY 07/27/24 [History] RX: Memantine [Namenda] 5 mg PO HS 07/27/24 [History] RX: Multivit with Calcium,Iron,Min [Women's Multivitamin] 1 each PO DAILY 07/27/24 [History] RX: Omeprazole 40 mg PO DAILY 07/27/24 [History] RX: Venlafaxine HCl [Effexor] 100 mg PO TID 07/27/24 [History] RX: diphenhydrAMINE [Benadryl] 25 mg PO DAILY PRN 07/27/24 [History] RX: sulfaSALAzine [Azulfidine] 1,000 mg PO BID 07/30/24 [History] HYDROcodone/APAP 5-325MG [Bend 5-325] 1 tab PO Q6HR PRN #28 tab 07/31/24 [Rx] RX: Lisinopril-Hctz 20-12.5 mg [Zestoretic 20-12.5] 1 each PO DAILY tab 08/02/24 [Rx] RX: Nicotine 21Mg/24Hr Patch [Habitrol] 1 patch TRANSDERM DAILY patch 08/02/24 [Rx] RX: Sennosides-Docusate Sodium [Senokot-S] 2 each PO BID tab 08/02/24 [Rx] Follow up Appointment(s)/Referral(s): Giovanny Gonzales DPM [Doctor of Osteopathic Medicine] - 08/05/24 10:15 am (With Janet) Freddy De La Paz MD [STAFF PHYSICIAN] - 1-2 Days (ECF please call for follow-up appointment.) Patient Instructions/Handouts: *Surgery [facility] - (Janet) Discharge Instructins Foot Surgery Activity/Diet/Wound Care/Special Instructions: Jayy KUMARI,BMP in 3 days No smoking Keep the splint clean, dry, intact. Do not remove Nonweightbearing on the right lower extremity. Use crutches, walker, wheelchair, etc with assistance for mobility Keep the right leg elevated when resting Take pain medications as prescribed Follow-up appoint with Dr. Gonzales previously scheduled Discharge Disposition: TRANSFER TO SNF/ECF Pending Studies Pending Results: None
[2024-08-03 14:06] VITALS: BP 115/69; PULSE 78; TEMP 98.1
== END 2024-08-03 15:29 | DRG 493 ==
LOC: OR 05:36 → 4SSUR 10:46 → OR 07-31 09:55
PROVIDERS: ADMIT Podiatrist; ATTEND Podiatrist
PROC: 0SGH07Z Fusion of Right Tarsal Joint with Autologous Tissue Substitute, Open Approach (ICD-10-PCS; principal; 2024-07-30 07:30)
PROC: 0SGF04Z Fusion of Right Ankle Joint with Internal Fixation Device, Open Approach (ICD-10-PCS; principal; 2024-07-30 07:30)
PROC: 07DT3ZZ Extraction of Bone Marrow, Percutaneous Approach (ICD-10-PCS; principal; 2024-07-30 07:30)
PROC: 0SGF07Z Fusion of Right Ankle Joint with Autologous Tissue Substitute, Open Approach (ICD-10-PCS; principal; 2024-07-30 07:30)
PROC: 0SGH04Z Fusion of Right Tarsal Joint with Internal Fixation Device, Open Approach (ICD-10-PCS; principal; 2024-07-30 07:30)
DX: M19.071 Primary osteoarthritis, right ankle and foot (principal); J98.11 Atelectasis; D64.9 Anemia, unspecified; E66.01 Morbid (severe) obesity due to excess calories; M06.9 Rheumatoid arthritis, unspecified; E03.9 Hypothyroidism, unspecified; I10 Essential (primary) hypertension; F32.A Depression, unspecified; D72.829 Elevated white blood cell count, unspecified; Z68.38 Body mass index [BMI] 38.0-38.9, adult; E53.8 Deficiency of other specified B group vitamins; E61.1 Iron deficiency; F17.210 Nicotine dependence, cigarettes, uncomplicated; Z71.6 Tobacco abuse counseling; K21.00 Gastro-esophageal reflux disease with esophagitis, without bleeding; K59.00 Constipation, unspecified; Z79.890 Hormone replacement therapy; Z96.652 Presence of left artificial knee joint; Z88.0 Allergy status to penicillin
CPT/HCPCS: 64445; 64447; 80048; 84443; 85025